=== PATIENT | female | born 1995 | race Caucasian/White ===

== ENCOUNTER 2021-08-30 04:21 | Day surgery (SDC) | payer OTHER ==
[2021-08-29 12:58] VITALS: BMI 31.7
[2021-08-30] MEDS ORDERED: BUPIVACAINE HCL/PF 0.5% (5MG/ML) 10 ML VIAL ONE (10:33)
[2021-08-30] MEDS ORDERED: LIDOCAINE 1%/EPI 1:100000 (20 ML MULTI DOSE VIAL) ONE (10:33)
[2021-08-30] MEDS ORDERED: SUCCINYLCHOLINE CHLORIDE 200 MG/10 ML SYRINGE ONE (11:12)
[2021-08-30] MEDS ORDERED: MIDAZOLAM HCL 2 MG/2 ML SINGLE DOSE VIAL ONE ×2 (11:12→11:59)
[2021-08-30] MEDS ORDERED: PROPOFOL 20 ML ONE ×2 (11:12)
[2021-08-30] MEDS ORDERED: DEXAMETHASONE SOD PHOSPHATE 4 MG/1 ML VIAL ONE (11:20)
[2021-08-30] MEDS ORDERED: BUPIVACAINE HCL/PF 0.5% (5 MG/ML) 30 ML VIAL IJ ONE (11:42)
[2021-08-30] MEDS ORDERED: LIDOCAINE 1%/EPI 1:100000 (20 ML MULTI DOSE VIAL) INF ONE (11:42)
[2021-08-30] MEDS ORDERED: oxyCODONE HCL 5 MG TABLET PO PRN (11:48)
[2021-08-30] MEDS ORDERED: ONDANSETRON 4 MG/2 ML VIAL IVPUSH PRN (11:48)
[2021-08-30] MEDS ORDERED: LACTATED RINGERS SOLUTION 1,000 ML IV SCH (12:00)
[2021-08-30 13:31] VITALS: PULSE 84
[2021-08-30 15:25] VITALS: BP 108/76; TEMP 97.8
== END 2021-08-30 15:15 | disposition home or self-care (01) ==
LOC: JASU-SURG 04:21
PROVIDERS: ATTEND Orthopaedic Surgery
PROC: 0SBD4ZZ Excision of Left Knee Joint, Percutaneous Endoscopic Approach (ICD-10-PCS; principal; 2021-08-30 08:00)
DX: M23.8X2 Other internal derangements of left knee (principal); M65.862 Other synovitis and tenosynovitis, left lower leg
CPT/HCPCS: 81025; 94760; 97116-GP